=== PATIENT | female | born 1995 | race Caucasian/White ===

== ENCOUNTER 2019-09-04 21:30 | Observation (INO) | payer OTHER ==
[~2019-09-04] VITALS: Ht 167.6 cm; Wt 105.2 kg
[~2019-09-04 21:30] MED LIST: NOHOMEMEDICATIONS; ZOFRAN ODT4 MG PO
[2019-09-04 22:03] LABS: ABSOLUTE BASOPHILS 0.1 thou/uL (0.0-0.2); ABSOLUTE EOSINOPHILS 0.1 thou/uL (0.0-0.7); ABSOLUTE LYMPHOCYTES 2.1 thou/uL (0.8-5.3); ABSOLUTE MONOCYTES 0.5 thou/uL (0.0-1.2); ABSOLUTE NEUTROPHILS 6.7 thou/uL (1.6-8.1); BASOPHILS 0.6 %; EOSINOPHILS 1.4 %; HEMATOCRIT 30.6 % (37.0-47.0); HEMOGLOBIN 9.3 gm/dL (12.0-15.0); LYMPHOCYTES 22.2 %; MCH 19.5 pg (26.0-34.0); MCHC 30.3 g/dL (28.0-37.0); MCV 64.3 fL (80.0-100.0); MONOCYTES 5.3 %; MPV 7.6 fl. (7.2-11.1); NUCLEATED RBCS 0 /100WBC; PLATELET COUNT* 366 thou/uL (150-400); POLYS 70.5 %; RBC 4.76 mil/uL (4.20-5.00); RDW-CV 17.6 % (10.5-14.5); WBC 9.5 thou/uL (4.0-11.0)
[2019-09-04 22:11] VITALS: BP 154/69
[2019-09-04 22:11] LABS: CALCIUM 8.6 mg/dL (8.5-10.1); CREATININE 0.7 mg/dL (0.6-1.3); POTASSIUM 3.9 mmol/L (3.5-5.1)
[2019-09-04 22:15] LABS: TOTAL BILIRUBIN 0.3 mg/dL (<0.1-1.0); TOTAL PROTEIN 7.6 g/dL (6.4-8.2)
[2019-09-04 22:34] LABS: URINE BILIRUBIN NEGATIVE (Negative); URINE BLOOD 2+ (Negative); URINE CLARITY CLEAR; URINE COLOR YELLOW; URINE GLUCOSE-RANDOM NEGATIVE (Negative); URINE KETONES NEGATIVE (Negative); URINE LEUKOCYTES NEGATIVE (Negative); URINE NITRITE NEGATIVE (Negative); URINE PROTEIN NEGATIVE (Negative); URINE SPECIFIC GRAVITY >= 1.030 (1.005-1.030); URINE UROBILINOGEN 0.2 E.U./dl (0.2-1.0)
[2019-09-04 22:37] LABS: OVALOCYTES Occasional
[2019-09-04 22:38] LABS: ANISOCYTOSIS 1+
[2019-09-04 22:39] LABS: MICROCYTES 2+
[2019-09-04 22:40] LABS: HYPOCHROMASIA 1+; PLATELET ESTIMATE ADEQUATE
[2019-09-04 22:41] LABS: MUCUS 4-6 Moderate strn/LPF (None Seen); SQUAMOUS >10 Many /LPF (0-3)
[2019-09-04 22:42] LABS: CALCIUM OXALATE 0-3 Few /LPF (None Seen); URINE RBC 3-10 Few /HPF (0-2)
[2019-09-04 22:43] LABS: CASTS None Seen /LPF (None Seen); URINE WBC 0-5 Rare /HPF (0-5)
[2019-09-04 22:53] LABS: AMP/METHAMP Negative (Negative); BARBITURATES Negative (Negative); BENZODIAZEPINES Negative (Negative); COCAINE Negative (Negative); METHADONE Negative (Negative); OPIATES Negative (Negative); PCP Negative (Negative); THC Negative (Negative)
[2019-09-05] VITALS: BP 125/49; BP 135/58
[2019-09-05 07:50] VITALS: BP 137/84
[2019-09-05 10:53] LABS: CALCIUM 8.1 mg/dL (8.5-10.1); CREATININE 0.8 mg/dL (0.6-1.3); POTASSIUM 3.4 mmol/L (3.5-5.1)
[2019-09-05 10:57] LABS: APTT 27.8 Seconds (25.0-31.3); INR 1.1; PROTIME 10.9 Seconds (9.20-11.50)
[2019-09-05 11:19] LABS: % SATURATION 5 % (20-39); IRON 17 ug/dL (50-175)
[2019-09-05 17:25] VITALS: BP 126/56
[2019-09-05 20:15] VITALS: BP 128/75
[2019-09-06 05:16] LABS: CHOLESTEROL 168 mg/dL (<200); HDL CHOLESTEROL 46 mg/dL (>40); LDL CHOLESTEROL 101 mg/dL (<100); SERUM ASSESSMENT Clear; TC:HDL 3.7 Ratio (Not establshd); TRIGLYCERIDE 109 mg/dL (<150); VLDL 22 mg/dL (<40)
[2019-09-06 08:30] VITALS: BP 109/61
[2019-09-06] MEDS ORDERED: ESCITALOPRAM OX10 MG PO (09:15)
[2019-09-06] MEDS ORDERED: IRON325 M1 PO (09:18)
[2019-09-06 10:07] VITALS: BP 109/61
[2019-09-07 02:11] LABS: GLYCOHEMOGLOBIN (HGB A1C) 5.2 % (4.8-5.6)
== END 2019-09-06 10:20 | disposition home or self-care (01) ==
LOC: M.ERS 21:30 → M.3W 23:12 → M.TBA-ER 23:12 → M.3W 09-05 00:07
PROVIDERS: Internal Medicine; Personal Emergency Response Attendant; ADMIT Family Medicine
DX: G43.819 Other migraine, intractable, without status migrainosus (principal); I10 Essential (primary) hypertension; D64.9 Anemia, unspecified; R53.1 Weakness

== ENCOUNTER 2020-02-28 10:00 | Emergency (ER) | payer OTHER ==
[~2020-02-28] VITALS: Ht 170.2 cm; Wt 102.1 kg
[~2020-02-28 10:00] MED LIST changes: +ESCITALOPRAM OX10 MG PO; +IRON325 M1 PO
[2020-02-28 10:08] VITALS: BP 118/80
[2020-02-28] MEDS ORDERED: BACTRIM DS TAB1 EACH PO (10:35)
[2020-02-28] MEDS ORDERED: NORCO 5-325 TA1 EAC2 PO (10:35)
== END 2020-02-28 10:41 | disposition home or self-care (01) ==
LOC: M.ERS 10:00
DX: L03.032 Cellulitis of left toe (principal); J45.909 Unspecified asthma, uncomplicated; E66.9 Obesity, unspecified; Z88.0 Allergy status to penicillin; Z88.8 Allergy status to other drugs, medicaments and biological substances